=== PATIENT | female | born 1965 | race Caucasian/White ===

== ENCOUNTER 2022-07-19 20:12 | Observation (INO) | payer OTHER, SELFPAY ==
[2022-07-19] VITALS (15 sets, daily range): BP systolic 140–190; BP diastolic 79–107; PULSE 81–87; RESP 16–18; TEMP 37–37.2; O2SAT 96–98; BMI 29.1; BMI 33.1
--- NOTE | 2022-07-19 20:40 | ED_ITS ---
HPI - General Adult General Time Seen by Provider: 20:40 Date Seen: 07/19/22 Chief complaint: Unspecified Complaint, Adult Stated complaint: Possible diabetic reaction, blood sugar was 192 Time Seen by Provider: 07/19/22 20:36 Source: patient and RN notes reviewed Mode of arrival: ambulatory Limitations: no limitations History of Present Illness HPI narrative: Gudelia is a 56-year-old female ambulatory into the ER accompanied by her with and amnestic event. She got home from work probably at about 330 today. She remembers going out to the garden getting some planting planting some roca. She started to trim will an arbovitae and when her got home just before 5:00 p.m., she was up stairs. She did not remember completing the trimming, she put another pot on top of a pot with roca in it and did not remember how they got there. They did talk to her neighbor, she did not see Gudelia fall, just saw Gudelia working. Gudelia does not know when she went into the house. Her shoes were by the door, does not remember taking him off. She does have some vague recollection of having an emesis, did have a little diarrheal stool just before arrival as well. She has a period of time that she just really cannot remember and is totally freaking her out. At this time, she has no pain, she has no head or neck pain, no back pain, no chest pain, no difficulty breathing, no visual changes, no facial changes, no changes in her arms or legs. She has no abdominal pain. She does take a statin, metformin, some vitamins and a small antidepressant pill. Related Data Home Medications Medication Instructions Recorded Confirmed citalopram 10 mg tablet 10 mg PO 04/15/22 04/15/22 hydrochlorothiazide 25 mg tablet 25 mg PO 04/15/22 04/15/22 metformin 500 mg tablet,extended tab PO 04/15/22 04/15/22 release 24 hr rosuvastatin 10 mg tablet 10 mg PO 04/15/22 04/15/22 Previous Rx's Medication Instructions Recorded amoxicillin 875 mg tablet 875 mg PO BID #20 tabs 04/15/22 Allergies Allergy/AdvReac Type Severity Reaction Status Date / Time No Known Drug Allergies Allergy Verified 07/19/22 20:22 Review of Systems Status of ROS: Reports: 10 or more systems reviewed and unremarkable except as noted in History and below [facility] Medical History (Updated 07/19/22 @ 22:35 by Arabella Desir MD) Strep throat ?J02.0 - Streptococcal pharyngitis (ICD-10) Social History Smoking Status: Never smoker Do you use any of these nicotine containing products: None Second hand tobacco smoke exposure: No How often do you have a drink containing alcohol: never How often do you have six or more drinks on one occasion: Never AUDIT-C Alcohol total score: 0 Non-prescribed substance use: denies use service: No Exam Const: Vital Signs, click to edit/add: Vital Signs - 24 hr 07/19/22 20:16 07/19/22 20:22 07/19/22 20:40 Temperature 98.9 F Pulse Rate Pulse Rate [Right Pulse Oximeter] 86 83 Respiratory Rate 18 18 Blood Pressure Blood Pressure [Ri ght Upper Arm] 190/107 H 149/95 H Pulse Oximetry 96 98 97 Oxygen Delivery Me thod Room Air Room Air 07/19/22 20:44 07/19/22 20:45 07/19/22 20:49 Temperature Pulse Rate 84 85 Pulse Rate [Right Pulse Oximeter] Respiratory Rate Blood Pressure Blood Pressure [Ri ght Upper Arm] Pulse Oximetry 98 97 97 Oxygen Delivery Me thod 07/19/22 21:00 07/19/22 21:02 07/19/22 21:03 Temperature Pulse Rate 84 82 83 Pulse Rate [Right Pulse Oximeter] Respiratory Rate Blood Pressure 158/86 H Blood Pressure [Ri ght Upper Arm] Pulse Oximetry 98 97 98 Oxygen Delivery Me thod 07/19/22 21:32 07/19/22 22:02 07/19/22 22:33 Temperature Pulse Rate Pulse Rate [Right Pulse Oximeter] Respiratory Rate Blood Pressure 161/90 H 155/79 H 157/105 H Blood Pressure [Ri ght Upper Arm] Pulse Oximetry Oxygen Delivery Me thod 07/19/22 22:34 07/19/22 22:45 Temperature Pulse Rate 84 87 Pulse Rate [Right Pulse Oximeter] Respiratory Rate Blood Pressure Blood Pressure [Ri ght Upper Arm] Pulse Oximetry 97 98 Oxygen Delivery Me thod Documenting provider has reviewed patient's vital signs: yes Common normals: no apparent distress, oriented x3, no limitations, healthy appearing, alert and well nourished General appearance: cooperative, comfortable, well kempt, well developed and anxious Nutritional appearance: overweight HENMT: Common normals: normocephalic, head/scalp atraumatic, hearing grossly normal bilaterally, external ears normal, TM's normal bilaterally, external nose normal, nasal mucous membranes and turbinates normal, moist oral mucous membranes, oropharynx normal, dentition normal and gingiva normal Head and scalp: normocephalic and atraumatic Nose: external nose normal and nasal mucous membranes and turbinates normal External ear: external ears normal Tympanic membrane: TM's normal bilaterally Eye: Common normals: PERRL, EOMs intact bilaterally, conjunctivae normal, no scleral icterus and normal visual daen by confrontation Conjunctiva: conjunctiva(e) normal Pupil: PERRL Neck & C-Spine: Common normals: full ROM, no lymphadenopathy, supple, no meningeal signs, no JVD and thyroid normal Thyroid: thyroid normal Resp: Common normals: normal respiratory effort, no retractions, no use of accessory muscles and clear to auscultation bilaterally Effort & inspection: able to speak in complete sentences Auscultation: clear to auscultation bilaterally Cardio: Common normals: no JVD, regular rate, regular rhythm, S1 normal heart sound, S2 normal heart sound, no gallops, no clicks and no murmurs Rate: regular rate Rhythm: regular rhythm Heart sounds: S1 normal and S2 normal GI: Common normals: Normal to inspection, nondistended, normoactive bowel sounds present, soft to palpation, non-tender, no hepatosplenomegaly and no masses Palpation: soft and no hepatosplenomegaly Back & Pelvis: Common normals: thoracic and lumbar spine normal to inspection, no thoracic nor lumbar tenderness and straight leg raise negative bilaterally Neuro: Jayde Coma Scale: document GCS findings Jayde coma scale eye opening: Spontaneous (4) Jayde coma scale verbal response: Orientated (5) Jayde coma scale motor response: Obey commands (6) [place] coma scale total score: 15 Common normals: oriented x3, CN's II-XII intact bilaterally, moves all extremities, no focal motor deficits, no sensory deficits noted and gait normal Sensorium/orientation: alert Meningeal signs: no meningeal signs Coordination/balance: Normal rapid alternating movements of the distal upper extremity present (Neuro) Motor exam: strength 5/5 throughout, no tremor noted, no asterixis, no fasciculations and muscle tone normal throughout Coordination: rapid alternating movement UE normal Psych: Appearance: well kempt Course Course Hospital Course: Patient certainly has an amnestic event, no evidence of trauma and no symptoms of trauma. She did have vomiting, 1 diarrheal stool since the episode. Have reviewed with her the possibility of a transient global amnestic event. Will proceed with head CT, full complement of labs. I understand from our lab that some of her chemistry analyzer is down and I cannot do a proBNP here tonight. We certainly will still do troponin, obtain EKG. She will be on cardiac monitoring and pulse oximetry. She is completely neurologically normal outside of the amnestic event. Reevaluation(s) Reevaluation #1: Reviewed with patient and her that her sodium is low, unknown exactly why at this time. Head CT is fine, troponin normal. Plan is for observation overnight. Time: 22:30 Consultations Consultation #1: Spoke with Dr. Roberts hospitalist regarding this patient, the hyponatremia and episode of amnesia (?transient global amnesia initially). We will obtain UA, portable CXR and initiate bolus NS. She accepts for observation. Time: 22:20 Vital Signs Vital signs: Initial Vital Signs Temperature 98.9 F 07/19/22 20:16 Temperature Source Temporal Artery Scan 07/19/22 20:16 Pulse Rate 86 07/19/22 20:16 Pulse Rhythm Regular 07/19/22 20:16 Pulse Strength 3+ Normal 07/19/22 20:16 Respiratory Rate 18 07/19/22 20:16 Blood Pressure 190/107 H 07/19/22 20:16 Blood Pressure Mean 134 H 07/19/22 20:16 Blood Pressure Position Sitting 07/19/22 20:16 Pulse Oximetry 96 07/19/22 20:16 Oxygen Delivery Method Room Air 07/19/22 20:16 Vital Signs Temperature 98.9 F 07/19/22 20:16 Pulse Rate 86 07/19/22 20:16 Respiratory Rate 18 07/19/22 20:16 Blood Pressure 190/107 H 07/19/22 20:16 Pulse Oximetry 96 07/19/22 20:16 Oxygen Delivery Method Room Air 07/19/22 20:16 Temperature 98.9 F 07/19/22 20:16 Pulse Rate 87 07/19/22 22:45 Respiratory Rate 18 07/19/22 20:40 Blood Pressure 157/105 H 07/19/22 22:33 Pulse Oximetry 98 07/19/22 22:45 Oxygen Delivery Method Room Air 07/19/22 20:40 Medical Decision Making Lab Data Lab results reviewed: Yes I reviewed the patient's lab results Lab results narrative: Probnp ordered could not be done due to portion of chemistry analyzer being down. Labs: Lab Results 07/19/22 Range/Units 21:05 WBC 7.04 (4.50-11.00) K/uL RBC 4.56 (4.00-5.20) m/uL Hgb 12.8 (12.0-16.0) gm/dL Hct 37.3 (33.0-51.0) % MCV 82 (80-100) fL MCH 28 (26-34) pg MCHC 34 (32-36) gm/dL RDW Coeff of Jhonatan 11.8 (11.5-15.5) % Plt Count 156 (140-440) K/uL Neut % (Auto) 72.3 H (42.0-72.0) % Lymph % (Auto) 17.8 L (20-44) % Price % (Auto) 6.1 (0.0-11.0) % Eos % (Auto) 3.0 (0.0-7.0) % Baso % (Auto) 0.7 (0.0-3.0) % Neut # (Auto) 5.10 (1.7-7.0) K/uL Lymph # (Auto) 1.30 (0.90-2.90) K/uL Price # (Auto) 0.40 (0.00-0.90) K/UL Eos # (Auto) 0.21 (0.00-0.50) K/uL Baso # (Auto) 0.05 (0.00-0.30) K/uL Sodium 126 L (135-149) mmol/L Potassium 3.4 L (3.6-5.1) mmol/L Chloride 89 L (96-114) mmol/L Carbon Dioxide 28 (20-32) mmol/L BUN 12 (7-30) mg/dL Creatinine 0.7 (0.5-1.5) mg/dL Estimated Creat Clear 82.01 Estimated GFR 100 ml/min Glucose 201 H (60-115) mg/dL Lactate 1.3 (0.5-1.9) mmol/L Calcium 9.4 (8.4-10.6) mg/dL Total Bilirubin 0.9 (0.1-1.5) mg/dL AST 29 (12-35) U/L ALT 34 (4-35) U/L Alkaline Phosphatase 68 (40-150) U/L C-Reactive Protein 0.8 (0.5-1.0) mg/dL Total Protein 7.4 (6.0-8.3) g/dL Albumin 4.6 (3.3-5.0) g/dL POC Troponin I 0.00 L (0.01-0.04) ng/ml Imaging Data CT scan - head: Attestation: I have reviewed the pertinent imaging results. Radiologist's impression: Patient: GUDELIA ERIC Facility:?[facility] Patient ID:?[id number] Site Patient ID:?[id number]. Site :?[id number] Study:?CT Head W/O-07/19/2022 9:30:21 PM Ordering Physician:Virgil Bell Final Report: INDICATION: Amnesia. TECHNIQUE: CT head without contrast. COMPARISON: May 12, 2017. FINDINGS: CSF spaces: Within normal limits for age. Brain parenchyma and extra-axial spaces: The cardona-white differentiation is normal. No sign of mass, hemorrhage, or midline shift. No extra-axial fluid collection. Skull base and calvarium: The visualized paranasal sinuses and mastoid air cells demonstrate no acute or significant findings. The visualized orbits are grossly unremarkable. No skull fractures. IMPRESSION: No acute intracranial abnormality or significant interval change when compared to prior study. Please note that all CT scans at this facility use dose modulation, iterative reconstruction, and/or weight-based dosing when appropriate to reduce radiation dose to as low as reasonably achievable. Dictated by Ed Fuller MD @ 07/19/2022 9:37:31 PM (Electronic Signature) Chest x-ray: Attestation: I have reviewed the pertinent imaging results. Radiologist's impression: Patient: GUDELIA ERIC Facility:?[facility] Patient ID:?[id number] Site Patient ID:?[id number]. Site :?[id number] Study:?XRay Chest PORTABLE ONE VIEW-07/19/2022 10:50:56 PM Ordering Physician:?Thang Bell Final Report: INDICATION: Altered mental status. Low sodium. TECHNIQUE: Chest 1 views. COMPARISON: None. FINDINGS: Cardiovasculature and mediastinum: Heart size and vasculature are normal in caliber and appearance. Lungs and pleural spaces: Lungs are clear. No sign of infiltrate or mass. No sign of pleural effusion. No pneumothorax. Bones and soft tissues: No significant findings. IMPRESSION: No acute or significant findings. Dictated by Kain Houston MD @ 07/19/2022 10:58:25 PM (Electronic Signature) ECG Data Attestation: I personally reviewed and interpreted this ECG as follows: (Normal sinus rhythm, 80 beats per minute. QT corrected 430 milliseconds. No ischemic change.) Prior ECG tracings: not available for review Critical Care Time Critical Care Time Critical Care Time: No Discharge Plan Discharge Clinical Impression: Amnesia, Hyponatremia Patient Disposition: Admitted As Inpatient Condition: Stable
--- NOTE | 2022-07-19 20:49 | CRLHL7_ITS ---
For Patients: As a result of the Century Cures Act, medical imaging exams and procedure reports are released immediately into your electronic medical record. You may view this report before your referring provider. If you have questions, please contact your health care provider. INDICATION: Amnesia. TECHNIQUE: CT head without contrast. COMPARISON: May 12, 2017. FINDINGS: CSF spaces: Within normal limits for age. Brain parenchyma and extra-axial spaces: The cardona-white differentiation is normal. No sign of mass, hemorrhage, or midline shift. No extra-axial fluid collection. Skull base and calvarium: The visualized paranasal sinuses and mastoid air cells demonstrate no acute or significant findings. The visualized orbits are grossly unremarkable. No skull fractures. IMPRESSION: No acute intracranial abnormality or significant interval change when compared to prior study. Please note that all CT scans at this facility use dose modulation, iterative reconstruction, and/or weight-based dosing when appropriate to reduce radiation dose to as low as reasonably achievable. Dictated by Ed Fuller MD @ 07/19/2022 9:37:31 PM (Electronically Signed)
[2022-07-19 21:17] LABS: Lactate* 1.3 mmol/L (0.5-1.9)
[2022-07-19 21:19] LABS: Basophils Absolute Auto 0.05 K/uL (0.00-0.30); Basophils Percent Auto 0.7 % (0.0-3.0); Eosinophils Absolute Auto 0.21 K/uL (0.00-0.50); Hematocrit 37.3 % (33.0-51.0); Hemoglobin* 12.8 gm/dL (12.0-16.0); Immature Granulocytes Abs Auto 0.01 K/uL (0.00-0.30); Immature Granulocytes Pct Auto 0.1 %; Lymphocytes Percent Auto 17.8 % (20-44); Mean Corpuscular HGB Conc 34 gm/dL (32-36); Mean Corpuscular Hemoglobin 28 pg (26-34); Mean Corpuscular Volume 82 fL (80-100); Monocytes Percent Auto 6.1 % (0.0-11.0); Neutrophils Percent Auto 72.3 % (42.0-72.0); Platelet Count* 156 K/uL (140-440); RDW Coefficient of Variation % 11.8 % (11.5-15.5); Red Blood Count 4.56 m/uL (4.00-5.20); White Blood Count* 7.04 K/uL (4.50-11.00)
[2022-07-19 21:26] LABS: Slide Review Reflex No
[2022-07-19 21:51] LABS: Albumin* 4.6 g/dL (3.3-5.0); Chloride* 89 mmol/L (96-114); Potassium* 3.4 mmol/L (3.6-5.1); Sodium* 126 mmol/L (135-149)
[2022-07-19 21:53] LABS: Creatinine* 0.7 mg/dL (0.5-1.5); Est. Creatinine Clearance* 82.01; Estimated Glomerular Filt Rate 100 ml/min
[2022-07-19 21:54] LABS: Alanine Aminotransferase* 34 U/L (4-35); Alkaline Phosphatase* 68 U/L (40-150); Aspartate Amino Transferase* 29 U/L (12-35); Bilirubin Total* 0.9 mg/dL (0.1-1.5); Blood Urea Nitrogen* 12 mg/dL (7-30); Carbon Dioxide* 28 mmol/L (20-32); Glucose* 201 mg/dL (60-115); Total Protein* 7.4 g/dL (6.0-8.3)
[2022-07-19 21:55] LABS: Calcium* 9.4 mg/dL (8.4-10.6)
[2022-07-19 21:57] LABS: C Reactive Protein* 0.8 mg/dL (0.5-1.0)
--- NOTE | 2022-07-19 22:15 | ED.NURSE ---
was asking to eat something. ok per dr benitez. sandwich was given.
--- NOTE | 2022-07-19 22:26 | CRLHL7_ITS ---
For Patients: As a result of the Cures Act, medical imaging exams and procedure reports are released immediately into your electronic medical record. You may view this report before your referring provider. If you have questions, please contact your health care provider. INDICATION: Altered mental status. Low sodium. TECHNIQUE: Chest 1 views. COMPARISON: None. FINDINGS: Cardiovasculature and mediastinum: Heart size and vasculature are normal in caliber and appearance. Lungs and pleural spaces: Lungs are clear. No sign of infiltrate or mass. No sign of pleural effusion. No pneumothorax. Bones and soft tissues: No significant findings. IMPRESSION: No acute or significant findings. Dictated by Kain Houston MD @ 07/19/2022 10:58:25 PM (Electronically Signed)
[2022-07-19] MEDS: 0.9 % SODIUM CHLORIDE 500 ML 500 ML IV (22:35)
--- NOTE | 2022-07-19 22:41 | ED.NURSE ---
was tearful due to her amnesia and need to be admitted to observation. was taking po- sandwich and crackers. aware that a ua is needed.
--- NOTE | 2022-07-19 22:54 | ED.NURSE ---
report was called to johnny diaz will go to [phone].
--- NOTE | 2022-07-19 23:59 | PM.IMHP1 ---
Hospitalist- H&P: HPI History of Present Illness Time Seen by Provider: 23:45 Date Seen: 07/19/22 Chief complaint: Possible diabetic reaction, blood sugar was 192 Narrative: Nallely Cook is a 56 year old female with hypertension diabetes mellitus type 2 experienced amnesia today. She was in her usual state of health when she got home from work today around 3:30 p.m.. She remembers getting home, cleaning out her car and then getting started on some outdoor gardening. Her came home around 5:00 p.m. and found her up stairs. She does not remember coming in the house or going up stairs. She told him that she did not feel well and that she could not remember how she got into the house or up stairs. She had completed a project where she cut off a small tree trunk in between to others and then she set a flower pot on top of that stump, but she does not remember doing that project even though it was done. She asked him how this project got done because she did not remember doing it. He told her that she must done it, but she still can not remember doing it. She asked her neighbor if they saw anything, but they said that she was acting normally this afternoon and did not have any falls that they knew about. She was quite anxious about the fact that she had gaps in her recent memory and around 6:30 p.m. she had an emesis and then later a little diarrhea. After this she asked her to bring her to the emergency department. Other than feeling very anxious and scared about the event, she is otherwise back to her usual self, according to her and her . She denies any numbness, weakness, tingling anywhere, headache, vision changes, chest pain or shortness of breath. She was found to have hyponatremia in the emergency department. She does take hydrochlorothiazide daily. She also notes that she has barely had anything to drink since noon today and is likely dehydrated. Review of Systems Status of ROS: Reports: 10 or more systems reviewed and unremarkable except as noted in History and below [facility] Medical History (Updated 07/20/22 @ 01:01 by Elinor Roberts MD) Heart murmur, systolic ?R01.1 - Cardiac murmur, unspecified (ICD-10) Essential hypertension ?I10 - Essential (primary) hypertension (ICD-10) Adenomatous colon polyp (~2013) ?D12.6 - Benign neoplasm of colon, unspecified (ICD-10) Mixed hyperlipidemia ?E78.2 - Mixed hyperlipidemia (ICD-10) Diabetes mellitus type 2 in obese (05/17/10) ?E11.69 - Type 2 diabetes mellitus with other specified complication (ICD-10) ?E66.9 - Obesity, unspecified (ICD-10) Pain in right leg ?M79.604 - Pain in right leg (ICD-10) Obesity ?E66.9 - Obesity, unspecified (ICD-10) Acute bronchospasm ?J98.01 - Acute bronchospasm (ICD-10) Carpal tunnel syndrome, bilateral ?G56.03 - Carpal tunnel syndrome, bilateral upper limbs (ICD-10) Dysthymic disorder ?F34.1 - Dysthymic disorder (ICD-10) Obstructive sleep apnea ?G47.33 - Obstructive sleep apnea (adult) (pediatric) (ICD-10) Strep throat ?J02.0 - Streptococcal pharyngitis (ICD-10) Surgical History (Updated 07/19/22 @ 23:27 by Elinor Roberts MD) H/O excision of ganglion cyst (~02/1989) ?Z98.890 - Other specified postprocedural states (ICD-10) Hx of tonsillectomy ?Z90.89 - Acquired absence of other organs (ICD-10) S/P DAFNE-BSO (~09/28/99) ?Z90.710 - Acquired absence of both cervix and uterus (ICD-10) ?Z90.722 - Acquired absence of ovaries, bilateral (ICD-10) ?Z90.79 - Acquired absence of other genital organ(s) (ICD-10) H/O dilation and curettage ?Z98.890 - Other specified postprocedural states (ICD-10) Hx of appendectomy ?Z90.49 - Acquired absence of other specified parts of digestive tract (ICD-10) Absence of both cervix and uterus, acquired ?Z90.710 - Acquired absence of both cervix and uterus (ICD-10) Hx of colonoscopy ?Z98.890 - Other specified postprocedural states (ICD-10) Family History (Updated 07/19/22 @ 23:29 by Elinor Roberts MD) Father Laryngeal cancer High blood pressure Maternal Grandfather Prostate cancer Paternal Grandfather Prostate cancer Mother Breast cancer, Onset Age: 50 Maternal Grandmother Diabetes Social History (Updated 07/20/22 @ 00:04 by Elinor Roberts MD) 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 Denies alcohol and recreational drug use. Highest level of school completed/degree received: some college, no degree Smoking Status: Never smoker Do you use any of these nicotine containing products: None Second hand tobacco smoke exposure: No How often do you have a drink containing alcohol: never How often do you have six or more drinks on one occasion: Never AUDIT-C Alcohol total score: 0 Non-prescribed substance use: denies use Caffeine: No service: No Meds Home Medications and Allergies Home Medications Medication Instructions Recorded Confirmed Type citalopram 10 mg tablet 10 mg PO DAILY 04/15/22 07/19/22 History hydrochlorothiazide 25 mg tablet 25 mg PO DAILY 04/15/22 07/19/22 History metformin 500 mg tablet,extended 2,000 mg PO DAILY 04/15/22 07/19/22 History release 24 hr rosuvastatin 10 mg tablet 10 mg PO DAILY 04/15/22 07/19/22 History ascorbic acid (vitamin C) 500 mg 500 mg PO DAILY 07/19/22 07/19/22 History capsule,extended release (Vitamin C) aspirin 81 mg capsule 81 mg PO DAILY 07/19/22 07/19/22 History biotin 1 mg capsule 1 mg PO DAILY 07/19/22 07/19/22 History calcium carbonate 600 mg-vitamin 1 tab PO DAILY 07/19/22 07/19/22 History D3 10 mcg (400 unit) tablet (Calcium with Vitamin D) multivitamin 1 tab PO DAILY 07/19/22 07/19/22 History omega 3-upz-bfq-fish oil 1,000 mg 1 cap PO DAILY 07/19/22 07/19/22 History (120 mg-180 mg) capsule (Fish Oil) Allergies Allergy/AdvReac Type Severity Reaction Status Date / Time No Known Drug Allergies Allergy Verified 07/19/22 20:22 Exam Narrative: Exam Narrative: General: No acute distress. Awake alert oriented x3. HEENT: Normocephalic atraumatic, pupils equally round and reactive to light and accommodation. Oropharynx clear. Mucous membranes are dry. No cervical lymphadenopathy, thyromegaly or carotid bruits. No JVD. Cardiovascular: Regular rate and rhythm. Grade 2/6 systolic murmur loudest at the left lower sternal border, no gallops or rubs. Chest: No increased work of breathing. Clear to auscultation bilaterally. No crackles or wheezes. Abdomen: Bowel sounds present. Soft, nondistended, nontender. No hepatosplenomegaly or masses. Extremities: No edema, no cyanosis or clubbing. Skin: No jaundice, no pallor, no rashes. Neuro: There are no focal deficits. Answered all questions appropriately. Good attention span. Romberg is negative. Cranial nerves 2-12 are intact. Extraocular movements are full. No nystagmus. No facial asymmetry. Tongue is midline. Peripheral vision and vision are grossly intact. Strength is 5/5 in all 4 extremities. DTRs intact and symmetric. Light touch sensation is intact in face body and extremities. Coordination is intact in upper and lower extremities. Const: Vital Signs, click to edit/add: Vital Signs - 24 hr 07/19/22 20:16 07/19/22 20:22 07/19/22 20:40 Temperature 98.9 F Pulse Rate Pulse Rate [Left P ulse Oximeter] Pulse Rate [Right Pulse Oximeter] 86 83 Respiratory Rate 18 18 Blood Pressure Blood Pressure [Le ft Arm] Blood Pressure [Ri ght Upper Arm] 190/107 H 149/95 H Pulse Oximetry 96 98 97 [facility] 07/19/22 20:44 07/19/22 20:45 07/19/22 20:49 Temperature Pulse Rate 84 85 Pulse Rate [Left P ulse Oximeter] Pulse Rate [Right Pulse Oximeter] Respiratory Rate Blood Pressure Blood Pressure [Le ft Arm] Blood Pressure [Ri ght Upper Arm] Pulse Oximetry 98 97 97 Oxygen Delivery Ut thod 07/19/22 21:00 07/19/22 21:02 07/19/22 21:03 Temperature Pulse Rate 84 82 83 Pulse Rate [Left P ulse Oximeter] Pulse Rate [Right Pulse Oximeter] Respiratory Rate Blood Pressure 158/86 H Blood Pressure [Le ft Arm] Blood Pressure [Ri ght Upper Arm] Pulse Oximetry 98 97 98 [facility] 07/[facility]/22 21:32 07/19/22 22:02 07/19/22 22:33 Temperature Pulse Rate Pulse Rate [Left P ulse Oximeter] Pulse Rate [Right Pulse Oximeter] Respiratory Rate Blood Pressure 161/90 H 155/79 H 157/105 H Blood Pressure [Le ft Arm] Blood Pressure [Ri ght Upper Arm] Pulse Oximetry Oxygen Delivery Me thod 07/19/22 22:34 07/19/22 22:45 07/19/22 23:17 Temperature 98.6 F Pulse Rate 84 87 Pulse Rate [Left P ulse Oximeter] 81 Pulse Rate [Right Pulse Oximeter] Respiratory Rate 16 Blood Pressure Blood Pressure [Le ft Arm] 140/96 H Blood Pressure [Ri ght Upper Arm] Pulse Oximetry 97 98 96 Oxygen Delivery Ut thod Room Air Hospitalist - H&P: Result Labs Labs: Short CBC 07/19/22 Range/Units 21:05 WBC 7.04 (4.50-11.00) K/uL Hgb 12.8 (12.0-16.0) gm/dL Hct 37.3 (33.0-51.0) % Plt Count 156 (140-440) K/uL BMP 07/19/22 21:05 Sodium 126 L Potassium 3.4 L Chloride 89 L Carbon Dioxide 28 BUN 12 Creatinine 0.7 Glucose 201 H Calcium 9.4 Liver Function 07/19/22 Range/Units 21:05 Total Bilirubin 0.9 (0.1-1.5) mg/dL AST 29 (12-35) U/L ALT 34 (4-35) U/L Alkaline Phosphatase 68 (40-150) U/L Albumin 4.6 (3.3-5.0) g/dL 07/19/2022 9:22 p.m. EKG: Normal sinus rhythm, 80 beats per minute, low-voltage QRS, borderline EKG. Ordering Physician: Arabella Desir M.D. Date of Service: 07/19/22 Procedure(s): CT head/brain wo con Accession Number(s): [id number] cc: Juanita Hernandez D.O.; Arabella Desir M.D.~ For Patients: As a result of the Cures Act, medical imaging exams and procedure reports are released immediately into your electronic medical record. You may view this report before your referring provider. If you have questions, please contact your health care provider. INDICATION: Amnesia. TECHNIQUE: CT head without contrast. COMPARISON: May 12, 2017. FINDINGS: CSF spaces: Within normal limits for age. Brain parenchyma and extra-axial spaces: The cardona-white differentiation is normal. No sign of mass, hemorrhage, or midline shift. No extra-axial fluid collection. Skull base and calvarium: The visualized paranasal sinuses and mastoid air cells demonstrate no acute or significant findings. The visualized orbits are grossly unremarkable. No skull fractures. IMPRESSION: No acute intracranial abnormality or significant interval change when compared to prior study. Please note that all CT scans at this facility use dose modulation, iterative reconstruction, and/or weight-based dosing when appropriate to reduce radiation dose to as low as reasonably achievable. Dictated by Ed Fuller MD @ 07/19/2022 9:37:31 PM (Electronically Signed) Ordering Physician: Arabella Desir M.D. Date of Service: 07/19/22 Procedure(s): XR chest 1V portable Accession Number(s): [id number] cc: Juanita Hernandez D.O.; Arabella Desir M.D.~ For Patients: As a result of the Century Cures Act, medical imaging exams and procedure reports are released immediately into your electronic medical record. You may view this report before your referring provider. If you have questions, please contact your health care provider. INDICATION: Altered mental status. Low sodium. TECHNIQUE: Chest 1 views. COMPARISON: None. FINDINGS: Cardiovasculature and mediastinum: Heart size and vasculature are normal in caliber and appearance. Lungs and pleural spaces: Lungs are clear. No sign of infiltrate or mass. No sign of pleural effusion. No pneumothorax. Bones and soft tissues: No significant findings. IMPRESSION: No acute or significant findings. Dictated by Kain Houston MD @ 07/19/2022 10:58:25 PM (Electronically Signed) Assessment and Plan Assessment and plan (1) Amnesia: Problem comment: - Suspect possible transient global amnesia verses atypical migraine versus altered mental status due to dehydration or hyponatremia or UTI. - she is back to her baseline mental status, but is being admitted for monitoring and treatment hyponatremia. - follow q.4 hours neuro checks. Status: Acute (2) Hyponatremia: Problem comment: - mild to moderate, possibly symptomatic - she was given a fluid bolus in the ER which is still running. Check a sodium level in the morning which will be about 6 hours from now. Would like a gentle rise in sodium of no more than 6-8 in 24 hours. Hold hydrochlorothiazide. Status: Acute (3) Essential hypertension: Problem comment: Hold hydrochlorothiazide for hyponatremia. Status: Chronic (4) Diabetes mellitus type 2 in obese: Problem comment: 03/24/22 HgbA1C 6.7% - continue metformin and diabetic diet. Status: Chronic (5) Mixed hyperlipidemia: Problem comment: Continue rosuvastatin. Status: Chronic (6) Obstructive sleep apnea: Problem comment: CPAP machine for home use at pressure: 5-16 cmw 11/21/2017 AHI-6 Status: Chronic Plan Anticipate that she will likely be able to discharge home tomorrow if sodium has improved and she has no further amnestic events.
[2022-07-20] VITALS (7 sets, daily range): BP systolic 121–133; BP diastolic 69–76; PULSE 62–82; RESP 16–20; TEMP 36.6–36.8; O2SAT 94–96
[2022-07-20 00:03] LABS: Appearance Urine Clear (Clear); Bilirubin Urine Negative (Negative); Blood Urine Negative (Negative); Color Urine Yellow (Yellow); Glucose Urine Negative (Negative); Ketones Urine Negative (Negative); Leukocyte Esterase Urine Trace (Negative); Nitrite Urine Positive (Negative); Protein Urine Negative (Negative); Specific Gravity Urine 1.015 (1.000-1.030); Urobilinogen Urine 0.2 (0.2-1.0); pH Urine 7.5 (5.0-8.5)
[2022-07-20 00:14] LABS: Bacteria Urine Many; Mucus Urine Few; RBC Urine 0-2 (0-2); Squamous Epithelial Cell Urine Few (None-Few); WBC Urine 0-2 (0-5)
[2022-07-20 00:32] LABS: Amphetamine Screen Urine Negative (Negative); Barbiturate Screen Urine Negative (Negative); Benzodiazepines Screen Urine Negative (Negative); Cannabinoid Screen Urine Negative (Negative); Cocaine Screen Urine Negative (Negative); Methadone Screen Urine Negative (Negative); Methamphetamines Screen Urine Negative (Negative); Opiate Screen Urine Negative (Negative); Oxycodone Screen Urine Negative (Negative); Phencyclidine Screen Urine Negative (Negative); Tricyclic Antidepressant Urine Negative (Negative)
--- NOTE | 2022-07-20 06:21 | PC.NURSE ---
Shift note: Pt arrived to the unit at 2305 on a wheelchair accompanied by . Conscious, alert and oriented on arrival, and vital signs stable as recorded per chat. 500 ml of N/S bolus set up at the ED was continued to completion. Patient denied confusion, amnesia, pain, and other symptoms reported at the ED. Urine sample collected and sent to the lab as ordered. Telebox set up at 0116. Pt educated on the course of the condition and questions answered.
[2022-07-20 07:57] LABS: Chloride* 100 mmol/L (96-114); Potassium* 3.7 mmol/L (3.6-5.1); Sodium* 136 mmol/L (135-149)
[2022-07-20 07:59] LABS: Creatinine* 0.6 mg/dL (0.5-1.5); Est. Creatinine Clearance* 95.68; Estimated Glomerular Filt Rate 104 ml/min
[2022-07-20 08:00] LABS: Blood Urea Nitrogen* 10 mg/dL (7-30); Calcium* 9.1 mg/dL (8.4-10.6); Carbon Dioxide* 29 mmol/L (20-32); Glucose* 178 mg/dL (60-115)
[2022-07-20] MEDS: ROSUVASTATIN CALCIUM 10 MG TABLET PO (08:32)
[2022-07-20] MEDS: ASPIRIN 81 MG TABLET EC PO (08:32)
[2022-07-20] MEDS: CITALOPRAM HYDROBROMIDE 20 MG TABLET 10 MG PO (08:32)
[2022-07-20] MEDS: MULTIVITAMIN/MINERALS 1 TABLET 1 TAB PO (08:33)
[2022-07-20] MEDS: ASCORBIC ACID 500 MG TABLET PO (08:33)
[2022-07-20] MEDS: METFORMIN ER 500 MG 2000 MG PO (08:33)
[2022-07-20] MEDS: SODIUM CHLORIDE 0.9 % (FLUSH) 10 ML SYRINGE 5 ML IVF (08:34)
--- NOTE | 2022-07-20 09:26 | CRLHL7_ITS ---
For Patients: As a result of the Century Cures Act, medical imaging exams and procedure reports are released immediately into your electronic medical record. You may view this report before your referring provider. If you have questions, please contact your health care provider. Indication: Amnesia and confusion, transient Technique: Noncontrast sagittal T1 weighted, axial FLAIR, axial T2 weighted, and axial diffusion weighted sequences are provided. Comparison: MRI 05/12/2017 Findings: The ventricles, sulci and gyri are normal size, shape and contour for age. The midline structures are centrally located with no evidence of shift. There are no suspicious intra or extra-axial fluid collections. There is a 3 mm focus of diffusion signal abnormality in the right hippocampus, without FLAIR signal abnormality or edema. Expected flow voids in the cavernous carotids and basilar artery. Expected intracranial vascular flow voids are preserved. Findings were discussed x telephone with Dr. Covarrubias at 10:45 am. Impression: There is a 3 mm focus of diffusion signal abnormality in the right hippocampus without FLAIR signal abnormality or edema. Findings would be compatible with transient global amnesia versus hyperacute ischemic infarct. Dictated by Odell Sanon MD @ 07/20/2022 10:46:52 AM (Electronically Signed)
[2022-07-20] MEDS: LORazepam 2 MG/ML inj 0.5 MG IVP (09:40)
[2022-07-20] MEDS: 5 % DEXTROSE 1000 ML 1,000 ML 250 ML IV (10:35)
[2022-07-20] MEDS: cefTRIAXone 1 GM in 0.9 % SODIUM CHLORIDE Mini-bag 100 ML IVPB (12:05)
[2022-07-20 12:21] LABS: Sodium* 136 mmol/L (135-149)
--- NOTE | 2022-07-20 14:35 | PC.NURSE ---
Alert and oriented x 3. Denies any pain. Bowel sounds active x 4 quadrants. Lung sounds clear, denies any shortness of breath, cough or dyspnea. Continent of bladder and bowel. Denies any painful urination or difficulty voiding. Neuro's intact. Patient off unit at 0925 for MRI, returned at 1015. D5 started per order at 250ml/hr.
--- NOTE | 2022-07-20 15:14 | P.DS_ITS ---
DS: Providers Provider Date Seen: 07/20/22 Date of admission: 07/20/22 00:33 Primary care physician: Juanita Hernandez DO Admitting Clinician: Elinor Roberts MD Attending Physician on discharge: Ravindra Sanchez MD Date of Discharge: 07/20/22 DS: Diagnosis Discharge Diagnosis (1) Amnesia: Status: Acute Problem details: - Suspect possible transient global amnesia - she is back to her baseline mental status (2) Hyponatremia: Status: Acute Problem details: MRI Impression: There is a 3 mm focus of diffusion signal abnormality in the right hippocampus without FLAIR signal abnormality or edema. Findings would be compatible with transient global amnesia versus hyperacute ischemic infarct. (3) Essential hypertension: Status: Chronic Problem details: Hold hydrochlorothiazide for hyponatremia. (4) Diabetes mellitus type 2 in obese: Status: Chronic Problem details: 03/24/22 HgbA1C 6.7% - continue metformin and diabetic diet. (5) Mixed hyperlipidemia: Status: Chronic Problem details: Continue rosuvastatin. (6) Obstructive sleep apnea: Status: Chronic Problem details: CPAP machine for home use at pressure: 5-16 cmw 11/21/2017 AHI-6 (7) UTI (urinary tract infection): Status: Acute DS: Summary Hospital Course Hospital Course: The patient was admitted to observation. She had no neurological symptoms or deficits. She had MRI Brain with results below. She was treated with ceftriaxone and omnicef for presumed UTI. UCx is pending and will need to be followed up by PCP. MRI BRAIN Impression: There is a 3 mm focus of diffusion signal abnormality in the right hippocampus without FLAIR signal abnormality or edema. Findings would be compatible with transient global amnesia versus hyperacute ischemic infarct. Time Spent with Patient Time attestation: Total time spent providing and/or coordinating discharge services: Exam Narrative: Exam Narrative: Gen: no acute distress HEENT: NCAT EOMI mmm Neck: Supple CV: RRR normal s1 s2 Lungs: CTAB Abd: Soft,nt, nd Neuro: Alert, oriented, CN grossly intact; nonfocal screening exam Psych: appropriate affect MSK: age appropriate muscle mass Skin; Warm, dry no rash on face Const: Vital Signs, click to edit/add: Vital Signs - 24 hr 07/19/22 20:16 07/19/22 20:22 07/19/22 20:40 Temperature 98.9 F Pulse Rate Pulse Rate [Left P ulse Oximeter] Pulse Rate [Right Pulse Oximeter] 86 83 Respiratory Rate 18 18 Blood Pressure Blood Pressure [Le ft Arm] Blood Pressure [Ri ght Upper Arm] 190/107 H 149/95 H Pulse Oximetry 96 98 97 Oxygen Delivery Me od Room Air Room Air 07/19/22 20:44 07/19/22 20:45 07/19/22 20:49 Temperature Pulse Rate 84 85 Pulse Rate [Left P ulse Oximeter] Pulse Rate [Right Pulse Oximeter] Respiratory Rate Blood Pressure Blood Pressure [Le ft Arm] Blood Pressure [Ri ght Upper Arm] Pulse Oximetry 98 97 97 Oxygen Delivery Me thod 07/19/22 21:00 07/19/22 21:02 07/19/22 21:03 Temperature Pulse Rate 84 82 83 Pulse Rate [Left P ulse Oximeter] Pulse Rate [Right Pulse Oximeter] Respiratory Rate Blood Pressure 158/86 H Blood Pressure [Le ft Arm] Blood Pressure [Ri ght Upper Arm] Pulse Oximetry 98 97 98 Oxygen Delivery Me thod 07/19/22 21:32 07/19/22 22:02 07/19/22 22:33 Temperature Pulse Rate Pulse Rate [Left P ulse Oximeter] Pulse Rate [Right Pulse Oximeter] Respiratory Rate Blood Pressure 161/90 H 155/79 H 157/105 H Blood Pressure [Le ft Arm] Blood Pressure [Ri ght Upper Arm] Pulse Oximetry Oxygen Delivery Me thod 07/19/22 22:34 07/19/22 22:45 07/19/22 23:17 Temperature 98.6 F Pulse Rate 84 87 Pulse Rate [Left P ulse Oximeter] 81 Pulse Rate [Right Pulse Oximeter] Respiratory Rate 16 Blood Pressure Blood Pressure [Le ft Arm] 140/96 H Blood Pressure [Ri ght Upper Arm] Pulse Oximetry 97 98 96 Oxygen Delivery Me thod Room Air 07/20/22 01:36 07/20/22 03:00 07/20/22 07:00 Temperature 98.2 F 97.8 F Pulse Rate 80 Pulse Rate [Left P ulse Oximeter] 78 63 Pulse Rate [Right Pulse Oximeter] Respiratory Rate 16 16 Blood Pressure Blood Pressure [Le ft Arm] 132/76 133/69 Blood Pressure [Ri ght Upper Arm] Pulse Oximetry 94 96 Oxygen Delivery Me thod Room Air Room Air 07/20/22 07:28 07/20/22 11:00 07/20/22 15:00 Temperature 98.3 F Pulse Rate 62 Pulse Rate [Left P ulse Oximeter] 66 67 Pulse Rate [Right Pulse Oximeter] Respiratory Rate 18 20 Blood Pressure Blood Pressure [Le ft Arm] 121/70 Blood Pressure [Ri ght Upper Arm] Pulse Oximetry 95 Oxygen Delivery Me thod Room Air 07/20/22 15:00 Temperature 97.8 F Pulse Rate Pulse Rate [Left P ulse Oximeter] 67 Pulse Rate [Right Pulse Oximeter] Respiratory Rate 20 Blood Pressure Blood Pressure [Le ft Arm] 128/70 Blood Pressure [Ri ght Upper Arm] Pulse Oximetry 95 Oxygen Delivery Me thod Room Air DS: Data Data Completed and Pending Labs on day of discharge: Labs from last 24 hours 07/20/22 07/20/22 07/19/22 11:02 07:34 23:45 WBC RBC Hgb Hct MCV MCH MCHC RDW Coeff of Jhonatan Plt Count Neut % (Auto) Lymph % (Auto) Early % (Auto) Eos % (Auto) Baso % (Auto) Neut # (Auto) Lymph # (Auto) Early # (Auto) Eos # (Auto) Baso # (Auto) Sodium 136 136 Potassium 3.7 Chloride 100 Carbon Dioxide 29 BUN 10 Creatinine 0.6 Estimated Creat Clear 95.68 Estimated GFR 104 Glucose 178 H Lactate Calcium 9.1 Total Bilirubin AST ALT Alkaline Phosphatase C-Reactive Protein NT-Pro-B Natriuret Pep Total Protein Albumin Urine Color Yellow Urine Appearance Clear Urine pH 7.5 Ur Specific [place] 1.015 Urine Protein Negative Urine Glucose (UA) Negative Urine Ketones Negative Urine Blood Negative Urine Nitrite Positive A Urine Bilirubin Negative Urine Urobilinogen 0.2 Ur Leukocyte Esterase Trace A Urine RBC 0-2 Urine WBC 0-2 Ur Squamous Epith Cells Few Urine Bacteria Many A Urine Mucus Few A Urine Opiates Screen Ur Oxycodone Screen Urine Methadone Screen Ur Propoxyphene Screen Ur Barbiturates Screen U Tricyclic Antidepress Ur Phencyclidine Scrn Ur Amphetamines Screen U Methamphetamines Scrn U Benzodiazepines Scrn Urine Cocaine Screen U Marijuana (THC) Screen Ur Drug Screen Comment POC Troponin I 07/19/22 07/19/22 23:43 21:05 WBC 7.04 RBC 4.56 Hgb 12.8 Hct 37.3 MCV 82 MCH 28 MCHC 34 RDW Coeff of Jhonatan 11.8 Plt Count 156 Neut % (Auto) 72.3 H Lymph % (Auto) 17.8 L Early % (Auto) 6.1 Eos % (Auto) 3.0 Baso % (Auto) 0.7 Neut # (Auto) 5.10 Lymph # (Auto) 1.30 Early # (Auto) 0.40 Eos # (Auto) 0.21 Baso # (Auto) 0.05 Sodium 126 L Potassium 3.4 L Chloride 89 L Carbon Dioxide 28 BUN 12 Creatinine 0.7 Estimated Creat Clear 82.01 Estimated GFR 100 Glucose 201 H Lactate 1.3 Calcium 9.4 Total Bilirubin 0.9 AST 29 ALT 34 Alkaline Phosphatase 68 C-Reactive Protein 0.8 NT-Pro-B Natriuret Pep Pending Total Protein 7.4 Albumin 4.6 Urine Color Urine Appearance Urine pH Ur Specific [place] Urine Protein Urine Glucose (UA) Urine Ketones Urine Blood Urine Nitrite Urine Bilirubin Urine Urobilinogen Ur Leukocyte Esterase Urine RBC Urine WBC Ur Squamous Epith Cells Urine Bacteria Urine Mucus Urine Opiates Screen Negative Ur Oxycodone Screen Negative Urine Methadone Screen Negative Ur Propoxyphene Screen Negative Ur Barbiturates Screen Negative U Tricyclic Antidepress Negative Ur Phencyclidine Scrn Negative Ur Amphetamines Screen Negative U Methamphetamines Scrn Negative U Benzodiazepines Scrn Negative Urine Cocaine Screen Negative U Marijuana (THC) Screen Negative Ur Drug Screen Comment See Note POC Troponin I 0.00 L Preliminary micro results at discharge 07/20/22 Unknown Urine Culture - Preliminary Urine,Clean Catch Gram negative rosalind Discharge Plan Discharge Disposition: Home, Self-Care Date of Admission: 07/20/22 00:33 Attending Provider on Discharge: Ravindra Sanchez Primary Care Provider: Juanita Hernandez Condition: Stable Anticipated Discharge Date/Time: 07/20/22 17:00 Discharge Medications: New cefdinir 300 mg capsule 300 mg PO BID Qty: 10 0RF Rx Instructions: starting on 07/21 Continued metformin 500 mg tablet extended release 24 hr 2,000 mg PO DAILY citalopram 10 mg tablet 10 mg PO DAILY rosuvastatin 10 mg tablet 10 mg PO DAILY aspirin 81 mg capsule 81 mg PO DAILY multivitamin Tablet 1 tab PO DAILY calcium carbonate-vitamin D3 [Calcium with Vitamin D] 600 mg-10 mcg (400 unit) tablet 1 tab PO DAILY omega 1-ssd-jjp-fish oil [Fish Oil] 1,000 mg (120 mg-180 mg) capsule 1 cap PO DAILY ascorbic acid (vitamin C) [Vitamin C] 500 mg capsule, extended release 500 mg PO DAILY biotin 1 mg capsule 1 mg PO DAILY Discontinued hydrochlorothiazide 25 mg tablet 25 mg PO DAILY Discharge Orders: Discharge Order (Routine); Ordered 07/20/22 Ordered By: Ravindra Sanchez Patient Education: Cefdinir (By mouth), Hyponatremia (DC) Activity Level: No Restrictions Diet Detail: Resume previous home diet Follow Up Appointments: Juanita Hernandez DO [Primary Care Provider] - 07/27/22 1:05 pm (This was Dr. Hernandez first available appointment. ) Forms: [employer] Info Instructions
--- NOTE | 2022-07-20 17:04 | PC.NURSE ---
Discharge: Patient pleasant and cooperative. Patient vitally stable, lungs clear, BS WNL, IV removed, catheter intact. Patient Neuros intact, patient denies pain, patient independent in room. Patient signed belongings sheet and discharge form, and had no further questions regarding discharge. Patient left the floor by foot to home at 1640 with belongings.
[2022-07-20 21:02] LABS: NT Pro B Type NatriureticPept* 117 pg/mL
== END 2022-07-20 16:40 | disposition home or self-care (01) ==
LOC: ED 22:59 → MEDSURG 07-20 00:49
PROVIDERS: Hospitalist; Admitting Provider Family Medicine; Emergency Provider Family Medicine; PCP Family Medicine; Visit Provider Family Medicine
DX: R41.3 Other amnesia (principal); E87.1 Hypo-osmolality and hyponatremia; N39.0 Urinary tract infection, site not specified; E78.2 Mixed hyperlipidemia; I10 Essential (primary) hypertension; E86.0 Dehydration; E11.69 Type 2 diabetes mellitus with other specified complication; E66.9 Obesity, unspecified; Z68.33 Body mass index [BMI] 33.0-33.9, adult; G47.33 Obstructive sleep apnea (adult) (pediatric); Z79.84 Long term (current) use of oral hypoglycemic drugs; Z79.82 Long term (current) use of aspirin
CPT/HCPCS: 36415; 70450; 70551; 71045; 80048; 80053; 80306; 81001; 83605; 83880; 84295; 84484; 85025; 86140; 87086; 87186; 93005; 94761; 96361; 96365; 96375; 99284; 99285; G0378; A9153; A9270; J0696; J2060; J7070; J7120